=== PATIENT | female | born 1985 | race Two or more races ===

== ENCOUNTER 2020-05-28 09:46 | Observation (INO) | payer MEDICAID ==
[2020-05-28] MEDS ORDERED: PREN-96 PO (10:39)
== END 2020-05-28 11:10 | disposition home or self-care (01) | DRG 955 ==
LOC: LDRP 09:46
PROVIDERS: ADMIT Specialist; ATTEND Specialist
DX: O09.523 Supervision of elderly multigravida, third trimester (principal); Z3A.35 35 weeks gestation of pregnancy
CPT/HCPCS: 59025; 76818; 81002; G0378

== ENCOUNTER 2020-06-04 17:20 | Observation (INO) | payer MEDICAID ==
[~2020-06-04 17:20] MED LIST: PREN-96 PO
== END 2020-06-04 18:33 | disposition home or self-care (01) ==
LOC: LDRP 17:20
PROVIDERS: ADMIT Obstetrics & Gynecology; ATTEND Obstetrics & Gynecology
DX: O09.523 Supervision of elderly multigravida, third trimester (principal); Z3A.36 36 weeks gestation of pregnancy
CPT/HCPCS: 59025; 76818; 81002; G0378

== ENCOUNTER → 2020-06-23 | Outpatient (CLI) | payer MEDICAID ==
--- NOTE | 2020-06-23 11:37 | NUR ---
Pre-Covid test done, PT tolerated well. PT scheduled for Repeat C/S on 06/27/20.
== END | disposition home or self-care (01) ==
LOC: LAB 11:25 → UNDOADMOB 11:25 → LDRP 11:25 → UNDODISOB 11:35 → EDSTATUS 07-02 14:13
PROVIDERS: ATTEND Specialist
DX: Z20.828 Contact with and (suspected) exposure to other viral communicable diseases (principal)
CPT/HCPCS: C9803; U0003; G0378

== ENCOUNTER 2020-06-27 04:04 | Inpatient (IN) | payer MEDICAID ==
[2020-06-27] VITALS (16 sets, daily range): BP systolic 122–146; BP diastolic 61–96
[~2020-06-27] VITALS: Ht 147.3 cm; Wt 79.4 kg
[2020-06-27] MEDS ORDERED: LACTATED RINGER'S 1,000 ML IV ONE (04:10)
[2020-06-27 05:28] LABS: Basophils # (auto) 0 10 ^3/uL (0-0.2); Basophils % (auto) 0.3 % (0.0-2.0); Eosinophils # (auto) 0 10 ^3/uL (0-0.8); Eosinophils % (auto) 0.7 % (0.0-7.0); Hematocrit 36.2 % (36.0-46.0); Hemoglobin 12.1 g/dL (12.2-16.2); Lymphocytes # (auto) 1.6 10 ^3/uL (0.4-5.4); Lymphocytes % (auto) 24.8 % (10.0-50.0); Mean Corpuscular Hemoglobin 28.7 pg (28.0-32.0); Mean Corpuscular Hgb Conc. 33.3 g/dL (32.0-36.0); Mean Corpuscular Volume 86.2 fL (80.0-100.0); Monocytes # (auto) 0.4 10 ^3/uL (0-1.3); Monocytes % (auto) 6.7 % (0.0-12.0); Neutrophils # (auto) 4.3 10 ^3/uL (1.6-8.6); Neutrophils % (auto) 67.5 % (37.0-80.0); Nucleated Red Blood Cells % 0.1 %; Platelet Count (auto) 139 10^3/uL (140-450); Red Cell Distribution Width 16.7 % (11.8-14.3); White Blood Cell 6.4 10^3/uL (4.4-10.8)
[2020-06-27] MEDS: LACTATED RINGER'S 1,000 ML IV SCH ×3 (05:43→15:20)
[2020-06-27 05:44] LABS: Albumin 2.2 g/dL (3.4-5.0); Calcium 8.1 mg/dL (8.5-10.1); Potassium 3.9 mmol/L (3.5-5.1)
[2020-06-27 05:44] LABS: Urine Amorphous Crystal FEW /hpf (None Seen); Urine Bacteria MOD /hpf (None Seen); Urine Blood Negative /uL (Negative); Urine Mucus FEW (None Seen); Urine Specific Gravity 1.014 (1.001-1.035); Urine WBC 22 /hpf (0 - 5)
[2020-06-27 05:49] LABS: BUN/Creatinine Ratio 18.8; Bilirubin, Total 0.3 mg/dL (0.2-1.0)
[2020-06-27 05:50] LABS: INR 0.92 (0.9-1.15); Partial Thromboplastin Time 29.3 sec (23.0-31.2)
[2020-06-27 05:57] LABS: Alcohol, Urine < 3.0 mg/dL (0-10); Amphetamine Screen, Urine NEGATIVE (NEGATIVE); Barbiturate Scree,Urine NEGATIVE (NEGATIVE); Benzodiazephine Screen, Urine NEGATIVE (NEGATIVE); Cannabinoid Screen, Urine NEGATIVE (NEGATIVE); Cocaine Screen, Urine NEGATIVE (NEGATIVE); Opiate Scree,Urine NEGATIVE (NEGATIVE); Phencyclidine Screen, Urine NEGATIVE (NEGATIVE)
[2020-06-27] MEDS ORDERED: TETRACAINE 1% INJ 2 ML VIAL IJ ONE (06:57)
[2020-06-27] MEDS ORDERED: LACT. RINGERS/OXYTOCIN 20UNITS 1,000 ML IV ONE (08:31)
[2020-06-27] MEDS ORDERED: diphenhdrAMINE HCL 50 MG/1 ML VL IV PRN (08:45)
[2020-06-27] MEDS ORDERED: KETOROLAC TROMETH 30 MG/ML 1ML VIAL IV ONE (08:45)
[2020-06-27] MEDS ORDERED: METOCLOPRAMIDE HCL 5MG/ml INJ 2ml VIAL IV PRN (08:45)
[2020-06-27] MEDS ORDERED: ceFAZolin 1GM/50ML 50 ML IV SCH (08:45)
[2020-06-27] MEDS ORDERED: NALOXONE HCL 0.4 MG/ML VIAL IV PRN (08:45)
[2020-06-27] MEDS ORDERED: HYDROmorphone HCL 2 MG/ML VL IV PRN (08:45)
[2020-06-27] MEDS ORDERED: ONDANSETRON HCL 4 MG/2 ML VIAL IV PRN (08:45)
[2020-06-27] MEDS ORDERED: GUM (CHEWING) 1 GUM CHEW CHEW ONE (08:45)
[2020-06-27] MEDS ORDERED: MORPHINE SULFATE 4 MG/ML SYR/VIAL IV PRN (08:45)
--- NOTE | 2020-06-27 09:20 | NUR ---
Patient transported into room 8B from PACU by KAMILLE Howell. Patient is alert and orientated. No complaint of pain 0/10. Patient is still numb from umbilicus down. Updated on plan of care. IV fluids placed on pump and continued as same as ordered. SCD's bilateral lower extremities, working properly, educated on purpose to reduce the risk of blood clots. Educated on IS, how to use purpose (reduce risk of PNA), demonstrated proper technique. Reached 1500. Board updated. Vital signs initiated per protocol. Bp 123/72 HR 59 Spo2 97% on RA resp 16. Verbalized understanding of all information. Fundus firm 2 above umbilicus, scant bleeding. Abdominal binder in place, educated on purpose. Dressing on lower abdomen clean dry intact.
--- NOTE | 2020-06-27 15:35 | NUR ---
Dr Espino on unit, patient requesting ice water, Dr Espino ordered Ice chips only unitl pt passes gas, then advance diet to clear liquid.
[2020-06-27] MEDS: MORPHINE SULFATE 4 MG/ML SYR/VIAL IV PRN ×2 (15:52→20:17)
[2020-06-27] MEDS: ceFAZolin 1GM/50ML 50 ML IV SCH (15:53)
[2020-06-27 19:46] LABS: Basophils # (auto) 0 10 ^3/uL (0-0.2); Basophils % (auto) 0.3 % (0.0-2.0); Eosinophils # (auto) 0 10 ^3/uL (0-0.8); Eosinophils % (auto) 0.2 % (0.0-7.0); Hemoglobin 11.4 g/dL (12.2-16.2); Lymphocytes # (auto) 1.3 10 ^3/uL (0.4-5.4); Lymphocytes % (auto) 14.5 % (10.0-50.0); Mean Corpuscular Hemoglobin 28.3 pg (28.0-32.0); Mean Corpuscular Hgb Conc. 32.6 g/dL (32.0-36.0); Mean Corpuscular Volume 86.7 fL (80.0-100.0); Monocytes # (auto) 0.4 10 ^3/uL (0-1.3); Monocytes % (auto) 4.4 % (0.0-12.0); Neutrophils # (auto) 7.2 10 ^3/uL (1.6-8.6); Neutrophils % (auto) 80.6 % (37.0-80.0); Platelet Count (auto) 146 10^3/uL (140-450); Red Blood Cells 4.04 10^6/uL (4.0-5.20)
--- NOTE | 2020-06-27 20:30 | NUR ---
Ambulation: Patient OOB with standby assistance by RN. Patient ambulated to bedside chair via steady gait. Pericare performed. Clean gown provided and bed linen changed. Patient remained in bedside chair at this time, no distress noted.
[2020-06-28] MEDS: ceFAZolin 1GM/50ML 50 ML IV SCH ×2 (00:05→07:31)
[2020-06-28] MEDS: LACTATED RINGER'S 1,000 ML IV SCH ×3 (00:06→13:10)
[2020-06-28] MEDS ORDERED: ACETAMINOPHEN IV 1000 MG/100ML (10MG/ML) IV ONE (01:15)
[2020-06-28 03:00] VITALS: BP 125/85
--- NOTE | 2020-06-28 05:00 | NUR ---
Clark catheter dc'd Order to discontinue clark catheter. Clark dc'd with clean technique following deflation of balloon. Patient tolerated well with no complaints of pain. Continue care.
[2020-06-28 05:11] LABS: RPR Non Reactive (Non Reactive)
--- NOTE | 2020-06-28 06:15 | NUR ---
Report received from Allen Garvey RN on stable pt. Assumed care. Addendum: 06/28/20 at 0839 by Kristen Ardon RN Amended: Links added.
[2020-06-28 06:43] VITALS: BP 128/76
--- NOTE | 2020-06-28 06:43 | NUR ---
Lower abdominal incision dressing removed, well approximated with kecia intact. No redness, bleeding, or drainage noted. Abdominal binder in place. Incentive spirometer at bedside. Pt educated on importance of use and using at least 10 x hour while awake. Pt also educated on importance of ambulation, pt encouraged to walk in the hallway at least once per shift. Pt verbalizes understanding. Addendum: 06/28/20 at 0839 by Kristen Ardon RN Amended: Links added.
[2020-06-28 07:13] LABS: Basophils # (auto) 0 10 ^3/uL (0-0.2); Basophils % (auto) 0.4 % (0.0-2.0); Eosinophils # (auto) 0 10 ^3/uL (0-0.8); Eosinophils % (auto) 0.3 % (0.0-7.0); Hemoglobin 11.7 g/dL (12.2-16.2); Lymphocytes # (auto) 1.3 10 ^3/uL (0.4-5.4); Lymphocytes % (auto) 12.3 % (10.0-50.0); Mean Corpuscular Hgb Conc. 33.5 g/dL (32.0-36.0); Mean Corpuscular Volume 86.6 fL (80.0-100.0); Monocytes # (auto) 0.5 10 ^3/uL (0-1.3); Neutrophils # (auto) 8.5 10 ^3/uL (1.6-8.6); Platelet Count (auto) 161 10^3/uL (140-450); Red Blood Cells 4.04 10^6/uL (4.0-5.20); White Blood Cell 10.4 10^3/uL (4.4-10.8)
[2020-06-28] MEDS: MORPHINE SULFATE 4 MG/ML SYR/VIAL IV PRN (07:31)
--- NOTE | 2020-06-28 07:52 | NUR ---
Dr. Crowder called by this RN for Day [address] Crowder informed that pt has hypoactive bowels sounds and has not passed gas yet and pt has only had ice chips, orders received to give pt clear liquid diet.
[2020-06-28] MEDS ORDERED: HYDROcodone-ACET 5/325MG TAB PO PRN (08:30)
--- NOTE | 2020-06-28 09:00 | NUR ---
Dr. Crowder at nurses station, orders received to advance diet from full liquid once pt passes gas and as tolerated.
[2020-06-28] MEDS: SIMETHICONE 80 MG CHEWABLE TABLET PO PRN ×2 (09:47→16:22)
[2020-06-28] MEDS: DOCUSATE SOD 100 MG CAP PO SCH ×2 (09:47→22:03)
[2020-06-28] MEDS: IBUPROFEN 800 MG TAB PO PRN ×2 (09:47→19:30)
--- NOTE | 2020-06-28 10:30 | NUR ---
Patient able to void 300ml without difficulty. Patient ambulated back to bed with steady gait and no distress noted. Addendum: 06/28/20 at 1216 by Kristen Ardon RN Amended: Links added.
[2020-06-28 11:40] VITALS: BP 129/78
[2020-06-28] MEDS: HYDROcodone-ACET 5/325MG TAB PO PRN ×2 (11:41→16:21)
--- NOTE | 2020-06-28 15:00 | NUR ---
Pt ambulating in hallway with steady gait. No signs of distress or discomfort noted.
[2020-06-28 15:30] VITALS: BP 132/80
--- NOTE | 2020-06-28 18:07 | NUR ---
Report given to Dwight Navas RN on stable pt. Relinquished care. Addendum: 06/28/20 at 1809 by Kristen Ardon RN Amended: Links added.
--- NOTE | 2020-06-28 19:18 | NUR ---
Artificial Nipple Education: Encouraged mother to refrain from using artificial nipples which include a pacifier. Discussed the risk of artificial nipple use and its effect on effective . Mother verbalized understanding of information and continues to request pacifier despite education.
[2020-06-28 19:30] VITALS: BP 134/81
--- NOTE | 2020-06-28 19:30 | NUR ---
Teaching: Discussed benefits of and risks associated with not . Discussed different positions, proper latch, feeding cues, and baby-led . Provided information of medication side effects related to . All questions and concerns addressed at this time. Patient verbalized understanding of information.
[2020-06-28 23:30] VITALS: BP 136/85
[2020-06-29] MEDS: HYDROcodone-ACET 5/325MG TAB PO PRN ×4 (00:11→20:54)
[2020-06-29 03:00] VITALS: BP 120/70
[2020-06-29] MEDS ORDERED: BISACODYL 10 MG RECT SUPP PR PRN (05:00)
[2020-06-29] MEDS: SIMETHICONE 80 MG CHEWABLE TABLET PO PRN (05:13)
[2020-06-29 07:30] VITALS: BP 138/95
[2020-06-29] MEDS: DOCUSATE SOD 100 MG CAP PO SCH ×2 (10:00→20:54)
[2020-06-29 11:20] VITALS: BP 140/90
[2020-06-29 15:30] VITALS: BP 140/88
[2020-06-29 19:30] VITALS: BP 138/95
--- NOTE | 2020-06-29 20:20 | NUR ---
IV removal IV DC'd with clean sterile technique, catheter fully intact. Pressure dressing applied to site. Patient tolerated well.
--- NOTE | 2020-06-29 21:04 | NUR ---
Bottle-feeding Education: Patient encouraged to breastfeed. Benefits of and the risk of providing formula to was discussed. Patient verbalized understanding of the benefits and is aware of risk and insists on bottle-feeding. Formula provided and instruction on formula preperation from the [facility] booklet reviewed with patient.
[2020-06-29 23:05] VITALS: BP 136/84
[2020-06-30] MEDS: IBUPROFEN 800 MG TAB PO PRN (02:16)
[2020-06-30 02:41] VITALS: BP 125/68
--- NOTE | 2020-06-30 04:00 | NUR ---
Shalom Chauhan CNM at bedside for assessment and to remove kecia.
[2020-06-30] MEDS: HYDROcodone-ACET 5/325MG TAB PO PRN ×2 (05:11→09:27)
[2020-06-30 07:00] VITALS: BP 140/82
--- NOTE | 2020-06-30 08:00 | NUR ---
Incision site assessment completed. Site is clean, dry, and edges well approximated. No signs or symptoms of infection noted.
[2020-06-30] MEDS: DOCUSATE SOD 100 MG CAP PO SCH (09:27)
--- NOTE | 2020-06-30 09:53 | NUR ---
Discharge: Discharge instructions given to mother of baby as ordered. Copies of and hearing screening, along with vaccination record given to mother. Mother encouraged to follow up with Lamination Operator of choice and to give envelope with infants information to protective signal installer at 1st office visit. All questions and concerns addressed. Mother of baby verbalized understanding and agreed to comply. Mother of baby encouraged to prepare for departure and notify RN ready to leave room for ID band removal/verification and car seat check.
--- NOTE | 2020-06-30 10:30 | NUR ---
Discharge: Discharge instructions given as ordered. Pt encouraged to follow up with CHIEF INVESTMENT OFFICER as instructed. All questions and concerns addressed. Patient verbalized understanding. Medication reconciliation completed and copy given to patient. All required/requested vaccines given and copies of vaccinations given to patient. Patient encouraged to prepare to depart unit.
[2020-06-30 11:00] VITALS: BP 138/87
--- NOTE | 2020-06-30 11:30 | NUR ---
Discharge: Patient taken to vehicle via wheelchair with all personal belongings, accompanied by staff and family member. No distress noted at time of departure, no adverse changes in status since initial assessment.
== END 2020-06-30 11:30 | disposition home or self-care (01) | DRG 540 ==
LOC: LDRP 04:04
PROVIDERS: ADMIT Specialist; ATTEND Specialist
PROC: 0UL70CZ Occlusion of Bilateral Fallopian Tubes with Extraluminal Device, Open Approach (ICD-10-PCS; 2020-06-27)
PROC: 10D00Z1 Extraction of Products of Conception, Low, Open Approach (ICD-10-PCS; principal; 2020-06-27 07:35)
DX: O34.211 Maternal care for low transverse scar from previous cesarean delivery (principal); Z30.2 Encounter for sterilization; Z37.0 Single live birth; Z3A.39 39 weeks gestation of pregnancy
CPT/HCPCS: 36415; 59025; 80053; 80307; 81001; 84112; 85025; 85610; 85730; 86592; 86850; 86900; 86901; 94762; 96360; 96361; 96374; 96375; G0378; J0131; J0690